=== PATIENT | male | born 1985 | race Caucasian/White ===

== ENCOUNTER 2017-09-19 23:17 | Inpatient (IN) | payer MEDICAID ==
[~2017-09-19] VITALS: Ht 175.3 cm; Wt 84.1 kg
--- NOTE | 2017-09-19 23:21 | NUR ---
PT BIB [facility] TO BED 2, C/O PAIN TO RIGHT ARM. PT REPORTS ARM STARTED SWELLING AFTER HE STUCK A NEEDLE IN HIS ARM ATTEMPTING TO USE HEROINE. RIGHT ARM IS SWOLLEN, RED AND WARM TO TOUCH. VSS, RESP EVEN AND UNLABORED;NAD NOTED.
[2017-09-19] MEDS ORDERED: VANCOMYCIN 1 GM in IV D5W 250 ML IV ONE (23:30)
[2017-09-19] MEDS ORDERED: TDAP [DIPH/PERTUSSIS/TET] 0.5 ML VIAL IM ONE ×2 (23:30→23:32)
[2017-09-19] MEDS ORDERED: MORPHINE SULFATE INJ 2 MG/ML DISP.SYRIN IV ONE (23:30)
[2017-09-19] MEDS ORDERED: ONDANSETRON HCL/PF 4 MG/2 ML VIAL IVP ONE (23:30)
[2017-09-19] MEDS ORDERED: ONDANSETRON HCL/PF 4 MG/2 ML VIAL ONE (23:32)
[2017-09-19] MEDS ORDERED: VANCOMYCIN 1 GM VIAL ONE (23:32)
[2017-09-19] MEDS ORDERED: MORPHINE SULFATE INJ 4 MG/ML DISP.SYRIN ONE (23:32)
[2017-09-19 23:57] LABS: BASOPHILS % (AUTO) 0.2 % (0.0-2.0); EOSINOPHILS % (AUTO) 0.4 % (0.0-6.0); HEMATOCRIT 36 % (39-51); HEMOGLOBIN 12.2 g/dL (13.5-17.5); LYMPHOCYTES # (AUTO) 1.3 /CMM (0.8-4.8); LYMPHOCYTES % (AUTO) 9.8 % (20.0-44.0); MEAN CORPUSCULAR HEMOGLOBIN 32 PG (26.0-33.0); MEAN CORPUSCULAR HGB CONC 34 g/dl (31.0-36.0); MEAN CORPUSCULAR VOLUME 92 fL (80-96); MONOCYTES # (AUTO) 1.4 /CMM (0.1-1.30); MONOCYTES % (AUTO) 10.3 % (2.0-12.0); NEUTROPHILS # (AUTO) 10.5 /CMM (1.8-8.9); NEUTROPHILS % (AUTO) 79.3 % (43.0-81.0); PLATELET COUNT (AUTO) 251 /CMM (150-450); RDW COEFFICIENT OF VARIATION 13.4 (11.5-15.0); RED BLOOD CELL COUNT(AUTO) 3.86 MIL/uL (4.5-6.0); WHITE BLOOD COUNT (AUTO) 13.2 K/uL (4.3-11.0)
--- NOTE | 2017-09-20 00:02 | NUR ---
PT MEDICATED ORDERED BY .
[2017-09-20 00:06] LABS: CREATININE 0.8 mg/dL (0.6-1.3); POTASSIUM 3.1 mmol/L (3.5-5.1)
--- NOTE | 2017-09-20 00:14 | NUR ---
PT RESTING QUIETLY, VSS. RESP EVEN AND UNLABORED, NAD NOTED.
[2017-09-20 00:18] LABS: CALCIUM, SERUM 8.3 mg/dL (8.5-10.1)
[2017-09-20] MEDS ORDERED: ACETAMINOPHEN 325 MG TABLET PO PRN (00:30)
[2017-09-20] MEDS ORDERED: MAGNESIUM HYDROXIDE 30 ML UDC PO PRN (00:30)
[2017-09-20] MEDS ORDERED: MAG HYDROX/AL HYDROX/SIMETH 30 ML UDC PO PRN (00:30)
[2017-09-20] MEDS ORDERED: Z GUARD REMEDY 2 OZ OINT TP PRN (00:30)
[2017-09-20] MEDS ORDERED: ONDANSETRON HCL/PF 4 MG/2 ML VIAL IVP PRN (00:30)
[2017-09-20] MEDS ORDERED: ENOXAPARIN SODIUM 40 MG/0.4 ML DISP.SYRIN SQ SCH (00:30)
--- NOTE | 2017-09-20 00:36 | NUR ---
PT GOING TO M/S BED 322.2, REPORT GIVEN TO TIARA.
--- NOTE | 2017-09-20 00:55 | NUR ---
PT TRANS TO ROOM 322 VIA WHEELCHAIR BY RN. HAWKINS.
[2017-09-20 01:00] VITALS: BP 145/75
--- NOTE | 2017-09-20 01:00 | NUR ---
MS/RN OPENING NOTES PT ARRIVED TO UNIT FROM ER VIA WHEELCHAIR. A/OX4. ON ROOM AIR, BREATHING EVEN AND UNLABORED. DENIES SOB, NO S/S OF RESP. DISTRESS NOTED. RIGHT ARM RED, SWOLLEN AND WARM TO TOUCH. NOTES PAIN UPON MOVEMENT. IV TO LEFT WRIST PATENT AND INTACT WITH IV VANCOMYCIN INFUSING. ORIENTED PT TO ROOM AND CALL LIGHT. BED IN LOW/LOCKED POSITION, CALL LIGHT IN REACH AND SIDE RAILS UPX2. WILL CONTINUE TO MONITOR
[2017-09-20] MEDS ORDERED: ENOXAPARIN SODIUM 40 MG/0.4 ML DISP.SYRIN SQ ONE (01:21)
[2017-09-20 01:30] VITALS: BP 147/75
--- NOTE | 2017-09-20 01:30 | NUR ---
MS/RN NOTES USED NEEDLE FOUND IN BELONGINGS. SKI BASE TRIMMER MADE AWARE. DISCARDED APPROPRIATELY. PT DENIES ADDITIONAL SHARPS IN BELONGINGS AND NONE FOUND
[2017-09-20] MEDS: HYDROCODONE/APAP 5/325MG 1 EACH TABLET PO PRN (03:00)
[2017-09-20] MEDS ORDERED: HYDROCODONE/APAP 5/325MG 1 EACH TABLET ONE (03:00)
--- NOTE | 2017-09-20 03:12 | NUR ---
MS/RN NOTES PT C/O PAIN TO R ARM 06/08. ADMINISTERED PRN NORCO ORDERED. WILL MONITOR FOR EFFECTIVENESS
[2017-09-20] MEDS ORDERED: FEE PK DOSING 1 MIN EA MC ONE (07:25)
--- NOTE | 2017-09-20 07:41 | NUR ---
RN OPENING NOTES RECEVIED PATIENT RESTING COMFORTABLY IN BED WITH EYES CLOSED. EASILY AROUSABLE. AOX4. RIGHT ARM CELLULITIS. MULTIPLE SCABS ON THE NECK AND ELBOW. COMPLAINING OF 8/10 PAIN IN THE RIGHT ARM. WILL IMPLEMENT APPROPRIATE PAIN INTERVENTIONS. DENIES SOB. DENIES CP. RESPIRATIONS EVEN AND UNLABORED. NO ACUTE DISTRESS. BED LOCKED IN THE LOWEST POSITION WITH SIDE RAILS UP X2. CALL LIGHT WITHIN REACH. WILL CONTINUE TO MONITOR, ASSESS AND EDUCATE THROUGHOUT SHIFT.
[2017-09-20 08:00] VITALS: BP 110/62
[2017-09-20] MEDS: VANCOMYCIN 1 GM in IV D5W 250 ML IV SCH ×3 (08:47→23:46)
[2017-09-20] MEDS: POTASSIUM CHLORIDE 20 MEQ TAB.PRT.SR PO ONE ×2 (09:00→11:47)
[2017-09-20] MEDS ORDERED: IOPAMIDOL 15 ML VIAL IT ONE (11:38)
[2017-09-20] MEDS ORDERED: POTASSIUM CHLORIDE 20 MEQ TAB.PRT.SR PO ONE (11:39)
[2017-09-20] MEDS ORDERED: IOHEXOL-300 100 ML VIAL IV ONE (11:40)
[2017-09-20] MEDS ORDERED: IV NS 0.9% 250 ML IV ONE (11:40)
[2017-09-20] MEDS: MORPHINE SULFATE INJ 2 MG/ML DISP.SYRIN IV PRN ×3 (11:50→21:52)
--- NOTE | 2017-09-20 12:02 | NUR ---
RN NON ADMIN NOTES PHARMACY CHANGED TIME FOR KDUR 40 MEQ FOR OMNICELL ACCESS. K DUR GIVEN AT [id number].
[2017-09-20] MEDS: IV NS 0.9% 1,000 ML IV PRN (12:03)
[2017-09-20] MEDS: CEFTRIAXONE 1 G in IV D5W 50 ML IV SCH (12:05)
[2017-09-20 16:00] VITALS: BP 116/68
--- NOTE | 2017-09-20 16:32 | NUR ---
RN NOTES PATIENT USED OWN RAZOR TO CUT OPEN ABSCESS ON THE RIGHT ARM. DRAINAGE AND FOUL ODOR NOTED. NOTIFIED DR. CANNON. ORDERS GIVEN FOR SURGICAL CONSULT. DR. LOVELACE CALLED AND NOTIFIED. ORDERS FOR CULTURE OF ABSCESS DRAINAGE. WILL CARRY OUT ORDERS GIVEN.
[2017-09-20] MEDS ORDERED: VANCOMYCIN 1 GM in IV D5W 250 ML IV SCH (17:00)
--- NOTE | 2017-09-20 17:00 | NUR ---
INCIDENT REPORT PATIENT USED OWN FACIAL RAZOR TO CUT ABSCESS ON THE RIGHT ARM. ASKED PATIENT WHY HE DID THIS AND HE SAID "THE PAIN WAS SO BAD I NEEDED TO RELIEVE SOME PRESSURE. I AM SORRY THAT IT BURSTED LIKE THAT AND MADE A MESS. I DID NOT KNOW THAT IT WOULD DO THAT." EXUDATE NOTED TO BE DRAINING FROM SIDE. SITE CLEANED WITH NS AND BANDAGED. RAZORS REMOVED FROM ROOM. ENVIRONMENT MADE SAFE. SITTER PROVIDED FOR SAFETY AND NOTIFIED.
--- NOTE | 2017-09-20 17:21 | NUR ---
RN NOTES PICTURES TAKEN OF OPEN ABSCESS. INCIDENT REPORT TO BE FILED. PATIENT ENVIRONMENT MADE SAFE.
--- NOTE | 2017-09-20 19:30 | NUR ---
MS RN NOTE RECEIVED PATIENT AWAKE AND ALERT IN BED. NO DISTRESS NOTED. SITTER AT BEDSIDE. DRESSING TO RIGHT ARM C/D/I. NO SUICIDAL IDEATION. IV SITE INTACT, WITH FLUIDS RUNNING ORDERED. SIDE RAILS UP, CALL LIGHT WITHIN REACH. WILL CONTINUE TO MONITOR.
--- NOTE | 2017-09-20 19:32 | NUR ---
RN CLOSING NOTES PATIENT RESTING COMFORTABLY IN BED WITH EYES CLOSED. AOX4. DENIES CHEST PAIN. DENIES SOB. PAIN 6/10 IN THE RIGHT ARM. WILL ENDORSE. RESPIRATIONS EVEN AND UNLABORED. NO ACUTE DISTRESS. IV ACCESS LEFT WRIST 20G. IV RUNNING AT 125 ML/HR. ALL NEEDS MET. ALL MEDS GIVEN APPROPRIATE. DRESSING ON THE RIGHT ELBOW RUNNING. BED LOCKED IN THE LOWEST POSITION WITH SIDE RAILS UP X2. WILL ENDORSE TO NIGHT RN FOR HANDY.
[2017-09-20] MEDS: ENOXAPARIN SODIUM 40 MG/0.4 ML DISP.SYRIN SQ SCH (21:51)
[2017-09-20 22:00] VITALS: BP 114/70
--- NOTE | 2017-09-20 22:00 | NUR ---
MS RN NOTE RECEIVED CALL FROM . ORDERS RECEIVED TO OBTAIN CONSENT FOR I&D TO RIGHT ARM ABSCESS AND DEBRIDEMENT AND TO KEEP PATIENT NPO POST MIDNIGHT. ORDERS CARRIED OUT. WILL CONTINUE TO MONITOR.
[2017-09-20] MEDS: ZOLPIDEM TARTRATE 5 MG TABLET PO PRN (23:46)
[2017-09-21] MEDS: IV NS 0.9% 1,000 ML IV PRN ×2 (05:31→23:11)
[2017-09-21] MEDS: MORPHINE SULFATE INJ 2 MG/ML DISP.SYRIN IV PRN ×4 (05:31→21:32)
--- NOTE | 2017-09-21 06:18 | NUR ---
MS RN NOTE PATIENT STABLE. NPO SINCE MIDNIGHT FOR I&D TO RIGHT ARM ABSCESS. ALL NEEDS MET AND ATTENDED TO. PAIN MANAGED BY RELAXATION TECHNIQUES AND PAIN MEDICATION ORDERED. CONSENT FOR PROCEDURE SIGNED AND PLACED IN CHART. WILL ENDORSE TO DAY SHIFT FOR HANDY.
[2017-09-21 07:10] LABS: BASOPHILS % (AUTO) 0.3 % (0.0-2.0); EOSINOPHILS # (AUTO) 0.1 /CMM (0.0-0.7); HEMATOCRIT 38 % (39-51); HEMOGLOBIN 12.6 g/dL (13.5-17.5); LYMPHOCYTES # (AUTO) 1.7 /CMM (0.8-4.8); LYMPHOCYTES % (AUTO) 16.4 % (20.0-44.0); MEAN CORPUSCULAR HEMOGLOBIN 31 PG (26.0-33.0); MEAN CORPUSCULAR HGB CONC 33 g/dl (31.0-36.0); MEAN CORPUSCULAR VOLUME 95 fL (80-96); MONOCYTES # (AUTO) 1.2 /CMM (0.1-1.30); MONOCYTES % (AUTO) 11.1 % (2.0-12.0); NEUTROPHILS # (AUTO) 7.4 /CMM (1.8-8.9); NEUTROPHILS % (AUTO) 71.2 % (43.0-81.0); PLATELET COUNT (AUTO) 257 /CMM (150-450); RDW COEFFICIENT OF VARIATION 13.5 (11.5-15.0); RED BLOOD CELL COUNT(AUTO) 4.04 MIL/uL (4.5-6.0); WHITE BLOOD COUNT (AUTO) 10.4 K/uL (4.3-11.0)
[2017-09-21 07:27] LABS: CALCIUM, SERUM 8.3 mg/dL (8.5-10.1); CREATININE 0.8 mg/dL (0.6-1.3); MAGNESIUM 2.1 mg/dL (1.8-2.4); PHOSPHORUS 3.5 mg/dL (2.5-4.9); POTASSIUM 3.9 mmol/L (3.5-5.1)
--- NOTE | 2017-09-21 07:41 | NUR ---
MS/RN OPENING NOTE PATIENT RECEIVED IN BED IN STABLE CONDITION. A/O X 4. NO SIGNS OF ACUTE DISTRESS. NO COMPLAIN OF PAIN OR DISCOMFORT. NPO STATUS AT THIS TIME DUE TO I & D SCHEDULE TODAY. SITTER AT BEDSIDE. ALL NEEDS ATTENDED TO. CALL LIGHT WITHIN REACH. WILL CONTINUE TO MONITOR TO ENSURE SAFETY.
[2017-09-21 08:23] VITALS: BP 117/69
[2017-09-21] MEDS: VANCOMYCIN 1 GM in IV D5W 250 ML IV SCH ×3 (08:44→23:35)
[2017-09-21] MEDS ORDERED: MIDAZOLAM HCL 2 MG/2ML VIAL ONE (10:16)
[2017-09-21] MEDS ORDERED: FENTANYL PF 100MCG/2ML AMPUL ONE (10:16)
--- NOTE | 2017-09-21 11:30 | NUR ---
MS/RN RETURN FROM I & D. PATIENT RETURNED FROM I & D TO RIGHT AC. TOLERATED WELL, V/S STABLE. NEW ORDERS FROM DR LOVELACE CLEAR LIQUIDS WHEN STABLE REGULAR DIET AFTER 12 NOON. RESUME ALL PREVIOUS PRE OP ORDERS. NOTED AND CARRIED OUT.
[2017-09-21] MEDS: CEFTRIAXONE 1 G in IV D5W 50 ML IV SCH (11:41)
[2017-09-21 16:00] VITALS: BP 111/66
--- NOTE | 2017-09-21 18:26 | NUR ---
MS/RN CLOSING NOTE PATIENT IN BED IN STABLE CONDITION. A/O X 4. NO SIGNS OF ACUTE DISTRESS. NO COMPLAIN OF PAIN OR DISCOMFORT AT THIS TIME. PATIENT EDUCATED S/P I & D SITE TO BE KEPT ELEVATED ON PILLOWS AND WRAP WITH GABRIELA BANDAGE, VERBALIZED UNDERSTANDING. ALL NEEDS ATTENDED TO. CALL LIGHT WITHIN REACH. WILL ENDORSE TO NEXT SHIFT FOR CONTINUITY OF CARE.
--- NOTE | 2017-09-21 19:36 | NUR ---
MS/RN NOTES PATIENT IN BED, AWAKE ALERT X3 NO PAIN OBSERVED AND REPORTED AT THIS TIME LAST PAIN MEDICATION GIVEN EARLIER. REPORTED NO BM FOR 2 DAYS AND WOULD LIKE TO HAVE BM RELIEVED. RECEIVED REPORT FROM AM RN AND WILL CONTINUE PLAN OF CARE. IV ON LEFT HAND GAUGE 22 W/ NS RUNNING AT 25 ML/HR. BED IN LOCK POSITIO. CALL LIGHTS WITHIN REACH. INFORM TO CALL FOR ASSISTANCE FOR SAFETY.
[2017-09-21 20:00] VITALS: BP 123/79
[2017-09-21] MEDS: ENOXAPARIN SODIUM 40 MG/0.4 ML DISP.SYRIN SQ SCH (20:10)
--- NOTE | 2017-09-21 21:00 | NUR ---
MS/RN IV ON LEFT HAND INFILTRATED. REMOVE AND TO PREVENT BLEEDING. APPLY PRESSURE PATIENT TOLERATE PROCEDURE. REINSERTED ON LEFT HAND GAUGE 24,W/ BLOOD RETURN.WILL CONTINUE TO MONITOR.
[2017-09-21 21:42] VITALS: BP 123/79
[2017-09-21] MEDS: ZOLPIDEM TARTRATE 5 MG TABLET PO PRN (23:20)
[2017-09-22] MEDS: MORPHINE SULFATE INJ 2 MG/ML DISP.SYRIN IV PRN ×4 (01:24→19:38)
--- NOTE | 2017-09-22 01:25 | NUR ---
MS/RN NOTES PAIN REPORTED OF 810 WILL GIVE PAIN MEDICATION AND RECHECK EFFECTIVENESS.
[2017-09-22 05:51] LABS: CALCIUM, SERUM 8.4 mg/dL (8.5-10.1); CREATININE 0.8 mg/dL (0.6-1.3)
--- NOTE | 2017-09-22 06:33 | NUR ---
322-2 MS/RN CLOSING NOTES PATIENT IN BED, HOB ELEVATED, ABLE TO VERBALIZE NEEDS. RIGHT UPPER EXTREMITY ELEVATED W/ 2 PILOWS, PAIN MEDICATION ADMINISTERED AND CONTROLLED,DRESSING DRY AND INTACT. WILL CONTINUE TO MONITOR,
[2017-09-22 08:00] VITALS: BP 111/61
--- NOTE | 2017-09-22 08:00 | NUR ---
PT SLEEPING IN BED. NO APPARENT S/S OF PAIN OR DISTRESS. IV FLUIDS TOLERATED WELL. WILL CONTINUE TO MONITOR PT. LEFT CALL LIGHT WITHIN REACH.
[2017-09-22] MEDS: VANCOMYCIN 1 GM in IV D5W 250 ML IV SCH ×2 (08:55→16:55)
[2017-09-22] MEDS: IV NS 0.9% 1,000 ML IV PRN (08:55)
[2017-09-22] MEDS ORDERED: MAGNESIUM HYDROXIDE 30 ML UDC PO PRN (11:00)
--- NOTE | 2017-09-22 11:15 | NUR ---
Social service consult requested by Dr. Calle for drug use and possible homelessness. Pt. is a 31 year old male who was admitted to [facility] for cellulitis. SHIVANI met with pt. bedside. Pt. is alert and oriented x 4. Pt. appears well groomed and cooperative during the assessment. Pt. states he moved from [place] to [facility] four months ago. Pt. is currently unemployed and receives GR and Food stamps. Pt. has been staying with friends and is homeless. Pt. has been incarcerated in the past but did not elaborate as to why. Pt. stated he received an acceptance letter from the [facility] while incarcerated and would like to go there, if possible. Pt's drug of choice is heroine and weed. The last time pt. used Heroin was two days ago. SHIVANI contacted [facility], a [facility] drug treatment program( [phone] and spoke to Asim in intake who informed SW that once pt. is medically cleared, to send pt. to the [facility] located at [address] [place] [id number]. Pt. will require taxi transportation to the [facility] upon discharge. SHIVANI did informed Asim that pt. did not have his acceptance letter on him. Asim informed SW that will not be an issue and they will be able to look up the acceptance letter in their files. SHIVANI met with pt. bedside and informed him that she spoke to Asim at The [facility] who are accepting him. SHIVANI informed pt. SO will provide taxi transportation to the drug treatment program.
[2017-09-22] MEDS: CEFTRIAXONE 1 G in IV D5W 50 ML IV SCH (12:58)
[2017-09-22 16:00] VITALS: BP 130/73
[2017-09-22] MEDS: DAKINS QUARTER STRENGTH (0.125%) 480 ML BOTTLE TOP SCH (16:56)
[2017-09-22] MEDS: LACTOBACILLUS RHAMNOSUS GG 1 EACH CAP.SPRINK PO SCH (16:57)
--- NOTE | 2017-09-22 18:30 | NUR ---
RN MS CLOSING NOTES PT IS ALERT AND RESTING IN BED. IV NS IS RUNNING AT 125ML/HR. PT TOLERATING FLUIDS WELL. PT WOUND CLEANED W/DAKINS AND PACKED WITH IODOFORM. KEPT WOUND ELEVATED CLEAN AND DRY. PT KEPT COMFORTABLE AND CALM. CALL LIGHT WITHIN REACH.
--- NOTE | 2017-09-22 19:45 | NUR ---
RN MS OPENING NOTE PT REMAINS IN NO ACUTE DISTRESS AT THIS TIME. PT IS ABLE TO WALK AND A/O X4 ABLE TO MAKE NEEDS KNOWN. PT HAS BANDAGE WRAP ON RIGHT ARM D/T CELLULITIS. LFA 22G IV IS CLEAN DRY AND INTACT RUNNING NS @125CC/HR. COMFORT AND SAFETY MEASURES TO BE PLACED DURING THE SHIFT. WILL CONTINUE TO MONITOR FOR ANY CHANGES.
[2017-09-22 20:00] VITALS: BP 127/73
[2017-09-22] MEDS: ENOXAPARIN SODIUM 40 MG/0.4 ML DISP.SYRIN SQ SCH (21:35)
[2017-09-22] MEDS: HYDROCODONE/APAP 5/325MG 1 EACH TABLET PO PRN (21:59)
[2017-09-23] MEDS: MORPHINE SULFATE INJ 2 MG/ML DISP.SYRIN IV PRN (00:04)
[2017-09-23] MEDS: ZOLPIDEM TARTRATE 5 MG TABLET PO PRN (01:11)
[2017-09-23] MEDS: VANCOMYCIN 1 GM in IV D5W 250 ML IV SCH ×2 (01:11→08:08)
[2017-09-23] MEDS: HYDROCODONE/APAP 5/325MG 1 EACH TABLET PO PRN ×3 (02:38→15:46)
[2017-09-23 04:00] VITALS: BP 127/73
--- NOTE | 2017-09-23 06:44 | NUR ---
RN MS CLOSING NOTE PT REMAINS IN NO ACUTE DISTRESS AT THE END OF THE SHIFT. AFTER PT RECEIVED AMBIEN AND NORCO 5-325 HE WAS MORE CALM AND ABLE TO GO TO SLEEP. BEFORE ADMINISTRATION OF THOSE MEDICATIONS HE WAS ANTSY AND ANXIOUS AND SLIGHTLY MANIC. ALL DUE MEDICATIONS WERE GIVEN AND TOLERATED ORDERED. COMFORT AND SAFETY MEASURES TO BE ENSURED DURING THE SHIFT. WILL ENDORSE CARE TO AM NURSE.
[2017-09-23 07:37] LABS: BASOPHILS % (AUTO) 0.7 % (0.0-2.0); EOSINOPHILS # (AUTO) 0.3 /CMM (0.0-0.7); EOSINOPHILS % (AUTO) 5.5 % (0.0-6.0); HEMATOCRIT 38 % (39-51); HEMOGLOBIN 12.9 g/dL (13.5-17.5); LYMPHOCYTES # (AUTO) 2.2 /CMM (0.8-4.8); LYMPHOCYTES % (AUTO) 34.4 % (20.0-44.0); MEAN CORPUSCULAR HEMOGLOBIN 32 PG (26.0-33.0); MEAN CORPUSCULAR HGB CONC 34 g/dl (31.0-36.0); MEAN CORPUSCULAR VOLUME 93 fL (80-96); MONOCYTES # (AUTO) 0.8 /CMM (0.1-1.30); MONOCYTES % (AUTO) 13.5 % (2.0-12.0); NEUTROPHILS # (AUTO) 2.9 /CMM (1.8-8.9); NEUTROPHILS % (AUTO) 45.9 % (43.0-81.0); PLATELET COUNT (AUTO) 330 /CMM (150-450); RDW COEFFICIENT OF VARIATION 13.9 (11.5-15.0); WHITE BLOOD COUNT (AUTO) 6.3 K/uL (4.3-11.0)
--- NOTE | 2017-09-23 07:43 | NUR ---
DODIE MS OPENING NOTES PT IS SLEEPING IN BED. NO APPARENT S/S OF PAIN OR DISTRESS. BREATHING UNLABORED AND NO SOB. WILL CONTINUE TO MONITOR. NS 09% IVF FLUIDS RUNNING @150ML/HR. CALL LIGHT WITHIN REACH. Addendum: 09/23/17 at 0748 by DINAH WEBSTER RN FLUID RUNNING @125ML/HR
[2017-09-23 07:54] LABS: CALCIUM, SERUM 9.2 mg/dL (8.5-10.1); CREATININE 0.8 mg/dL (0.6-1.3); POTASSIUM 4.2 mmol/L (3.5-5.1)
[2017-09-23 08:00] VITALS: BP 130/70
[2017-09-23] MEDS: LACTOBACILLUS RHAMNOSUS GG 1 EACH CAP.SPRINK PO SCH (08:08)
[2017-09-23] MEDS: DAKINS QUARTER STRENGTH (0.125%) 480 ML BOTTLE TOP SCH (08:09)
[2017-09-23] MEDS: CEFTRIAXONE 1 G in IV D5W 50 ML IV SCH (11:00)
--- NOTE | 2017-09-23 11:59 | NUR ---
SHIVANI and rn case management Kevin met with pt. bedside to discuss discharge plan. Pt. will be discharged to [facility] located at [address] [place] [address] . Pt. will require taxi transportation. SHIVANI informed OSMANI Anitra regarding discharge plan and pt. requiring taxi transportation. Pt. was requesting to stay another day, however SHIVANI reiterated to pt. that the doctor has medically cleared him for discharge and he would have to leave today. SHIVANI gave pt. the following resources: List of food resources, List of shelters in [place], Homeless Resource Directory, List of medical clinics and hospitals, along with list for dental and vision clinics and list of substance abuse resources.
[2017-09-23] MEDS ORDERED: FLU VACC QS 2017-18(36MOS+)/PF 0.5 ML DISP.SYRIN IM ONE ×2 (12:00→17:00)
--- NOTE | 2017-09-23 17:17 | NUR ---
RN MS NOTES PT LEFT THE UNIT AT 1650. PT EDUCATED ON HOW TO CARE FOR WOUND. PT ALSO GIVEN SUPPLIES TO CONTINUE CARE. PT GIVEN DISCHARGE INSTRUCTIONS AND VERBALLY STATED UNDERSTANDING. PT WILL FOLLOW UP WITH PCP. PT EDUCATED ON S/S OF INFECTION. ALL BELONGINGS TAKEN WITH PT AT DISCHARGE. AT TIME OF DC PT VITALS STABLE. PT AMBULATED OFF OF UNIT.
== END 2017-09-23 17:00 | disposition home or self-care (01) | DRG 720 ==
LOC: ER 23:19 → MED 09-20 00:33
PROVIDERS: ADMIT Internal Medicine; ATTEND Internal Medicine
PROC: 0X980ZZ Drainage of Right Upper Arm, Open Approach (ICD-10-PCS; principal; 2017-09-21 10:30)
DX: A41.9 Sepsis, unspecified organism (principal); F15.10 Other stimulant abuse, uncomplicated; L03.113 Cellulitis of right upper limb; L02.413 Cutaneous abscess of right upper limb; F17.200 Nicotine dependence, unspecified, uncomplicated; Z59.0 Homelessness
CPT/HCPCS: 36415; 73201-TC; 80048-TC; 80202-TC; 83605-TC; 83735-TC; 84100-TC; 85025-TC; 87040-TC; 87070-TC; 87081-TC; 90715; A4217; A4606; A6402; A6403; A6407; J0696; J1650; J2250; J2270; J2405; J2704; J3010; J3370; J7030; J7050; J7060; Q2036; Q9967; Z7610